=== PATIENT | male | born 1955 | race African-American/Black ===

== ENCOUNTER 2018-10-19 18:30 | Emergency (ER) | payer OTHER ==
--- NOTE | 2018-10-19 19:42 | ER Document Report ---
ED Medical Screen (RME) - General Chief Complaint: Passed Out Prior to Arrival Stated Complaint: POSSIBLE SEIZURE, PASSED OUT Time Seen by Provider: 10/19/18 19:39 Notes: Patient is a 62-year-old male presents to the emergency department with possible new onset seizures. Family states patient was sitting in a chair. States he slumped over to his left side and then his upper bilateral arms and lower bilateral legs started shaking. Family is showing me the activity and it does appear to be a tonic-clonic type seizure. States patient was also foaming at the mouth. States they were able to lay the patient flat on the ground. States after patient "woke up" patient had no idea where he was or what had happened. Patient states he felt lightheaded and dizzy but then does not remember any thing after that. Patient has a history of diabetes, takes glipizide Triage PSG within normal limits. GENERAL: Alert, interacts well. No acute distress. EXTREMITIES: Moves all 4 extremities spontaneously. No edema, normal radial and dorsalis pedis pulses bilaterally. No cyanosis. 5 out of 5 strength all 4 extremities I have greeted and performed a rapid initial assessment of this patient. A comprehensive ED assessment and evaluation of the patient, analysis of test results and completion of the medical decision making process will be conducted by additional ED providers. This medical record was dictated with voice recognizing software. There may be grammatical, syntax errors that are unintended. TRAVEL OUTSIDE OF THE [place] IN LAST 30 DAYS: No - Related Data Allergies/Adverse Reactions: No Known Allergies Allergy (Verified 10/19/18 18:31) Past Medical History - Social History Chew tobacco use (# tins/day): No Frequency of alcohol use: None Drug Abuse: None Endocrine Medical History: Reports: Hx Diabetes Mellitus Type 2 Renal/ Medical History: Denies: Hx Peritoneal Dialysis Past Surgical History: Reports: Hx Cholecystectomy - Immunizations Hx Diphtheria, Pertussis, Tetanus Vaccination: Yes Physical Exam - Vital signs Vitals: Temp Pulse Resp BP Pulse Ox 98.2 F 77 14 101/71 94 10/19/18 18:43 10/19/18 18:43 10/19/18 18:43 10/19/18 18:43 10/19/18 18:43 Course - Vital Signs Vital signs: Temp Pulse Resp BP Pulse Ox 98.2 F 77 14 101/71 94 10/19/18 18:43 10/19/18 18:43 10/19/18 18:43 10/19/18 18:43 10/19/18 18:43
[2018-10-19 20:19] LABS: ABSOLUTE BASOPHILS # (AUTO) 0.1 10^3/uL (0.0-0.2); ABSOLUTE LYMPHOCYTES (AUTO) 1.9 10^3/uL (0.5-4.7); ABSOLUTE MONOCYTES (AUTO) 0.7 10^3/uL (0.1-1.4); ABSOLUTE NEUT (AUTO) 11.4 10^3/uL (1.7-8.2); BASOPHILS % (AUTO) 0.4 % (0-2); EOSINOPHILS % (AUTO) 0.2 % (0-6); HEMATOCRIT 44.1 % (37.9-51.0); HEMOGLOBIN 14.5 g/dL (13.5-17.0); LYMPHOCYTES % (AUTO) 13.5 % (13-45); MEAN CORPUSCULAR HEMOGLOBIN 28.3 pg (27.0-33.4); MEAN CORPUSCULAR VOLUME 86 fl (80-97); MONOCYTES % (AUTO) 4.7 % (3-13); PLATELET COUNT 232 10^3/uL (150-450); RED BLOOD COUNT 5.14 10^6/uL (4.35-5.55); RED CELL DISTRIBUTION WIDTH 14.5 % (11.5-14.0); SEGMENTED NEUTROPHILS % (AUTO) 81.2 % (42-78); TOTAL CELLS COUNTED % (AUTO) 100 %; WHITE BLOOD COUNT 14.1 10^3/uL (4.0-10.5)
[2018-10-19 20:25] LABS: APPEARANCE,URINE SLIGHTLY-CLOUDY; BILIRUBIN,URINE NEGATIVE (NEGATIVE); COLOR,URINE YELLOW; GLUCOSE, URINE 50 mg/dL (NEGATIVE); KETONES,URINE TRACE mg/dL (NEGATIVE); LEUKOCYTE ESTERASE,URINE NEGATIVE (NEGATIVE); NITRITE,URINE NEGATIVE (NEGATIVE); PROTEIN,URINE 30 mg/dL (NEGATIVE); URINE SPECIFIC GRAVITY 1.028; UROBILINOGEN,URINE NEGATIVE mg/dL (<2.0)
[2018-10-19 20:40] LABS: ALANINE AMINOTRANSFERASE 29 U/L (21-72); ALBUMIN 4.7 g/dL (3.5-5.0); ALKALINE PHOSPHATASE 54 U/L (38-126); ANION GAP 11 (5-19); ASPARTATE AMINO TRANSFERASE 35 U/L (17-59); BILIRUBIN,DIRECT 0.3 mg/dL (0.0-0.4); BLOOD UREA NITROGEN 16 mg/dL (7-20); CALCIUM 10.1 mg/dL (8.4-10.2); CARBON DIOXIDE 29 mmol/L (22-30); CHLORIDE 101 mmol/L (98-107); GLUCOSE 198 mg/dL (75-110); POTASSIUM 4.4 mmol/L (3.6-5.0); SODIUM 141.4 mmol/L (137-145); TOTAL PROTEIN 7.5 g/dL (6.3-8.2)
[2018-10-19 20:41] LABS: ALCOHOL < 10 mg/dL (NONE DETECTED)
[2018-10-19 20:42] LABS: URINE AMPHETAMINES SCREEN NEGATIVE; URINE BARBITURATES SCREEN NEGATIVE; URINE BENZODIAZEPINES SCREEN NEGATIVE; URINE COCAINE SCREEN NEGATIVE; URINE MARIJUANA (THC) SCREEN NEGATIVE; URINE METHADONE SCREEN NEGATIVE; URINE PHENCYCLIDINE SCREEN NEGATIVE
--- NOTE | 2018-10-19 20:47 | ER Document Report ---
ED Seizure - General Chief Complaint: Passed Out Prior to Arrival Stated Complaint: POSSIBLE SEIZURE, PASSED OUT Time Seen by Provider: 10/19/18 19:39 Primary Care Provider: HAYDEN PENNY MD [Primary Care Provider] - 10/21/18 Notes: Patient is a 62-year-old male that comes to the emergency department for chief c omplaint of possible new onset seizure. Family reported patient was sitting in a chair, slumped over to his left side, then both upper and lower extremities on both sides started shaking and seizure-like activity. Patient is unable to tell me how long this lasted. He states he does not remember the episode. Patient states he feels tired but he denies headache, pain, nausea, dizziness, or any o ther symptoms at this time. Past medical history of type 2 diabetes, BPH, both medicated. Only other reported medical history is cholecystectomy. Patient denies alcohol or hitting his head today. Denies any new medications. Denies sick symptoms today. - Related Data Allergies/Adverse Reactions: No Known Allergies Allergy (Verified 10/19/18 18:31) Past Medical History - General Information source: Patient, Relative - Social History Smoking Status: Current Every Day Smoker Chew tobacco use (# tins/day): No Frequency of alcohol use: None Drug Abuse: None Lives with: Family Family History: None Patient has suicidal ideation: No Patient has homicidal ideation: No Endocrine Medical History: Reports: Hx Diabetes Mellitus Type 2 Renal/ Medical History: Denies: Hx Peritoneal Dialysis Past Surgical History: Reports: Hx Cholecystectomy - Immunizations Hx Diphtheria, Pertussis, Tetanus Vaccination: Yes Review of Systems - Review of Systems Constitutional: No symptoms reported EENT: No symptoms reported Cardiovascular: No symptoms reported Respiratory: No symptoms reported Gastrointestinal: No symptoms reported Genitourinary: No symptoms reported Male Genitourinary: No symptoms reported Musculoskeletal: No symptoms reported Skin: No symptoms reported Hematologic/Lymphatic: No symptoms reported Neurological/Psychological: See HPI Physical Exam - Vital signs Vitals: Temp Pulse Resp BP Pulse Ox 98.2 F 77 14 101/71 94 10/19/18 18:43 10/19/18 18:43 10/19/18 18:43 10/19/18 18:43 10/19/18 18:43 - Notes Notes: GENERAL: Alert, interacts well. No acute distress. HEAD: Normocephalic, atraumatic. EYES: Pupils equal, round, and reactive to light. Extraocular movements intact. ENT: Oral mucosa moist, tongue midline. Oropharynx unremarkable. Airway patent. Nares patent, no nasal septal hematoma, TM's intact. NECK: Full range of motion. Supple. Trachea midline. LUNGS: Clear to auscultation bilaterally, no wheezes, rales, or rhonchi. No respiratory distress. HEART: Regular rate and rhythm. No murmur ABDOMEN: Soft, non-tender. Non-distended. Bowel sounds present in all 4 quadrants. GENITOURINARY: Deferred EXTREMITIES: Moves all 4 extremities spontaneously. No edema, normal radial and dorsalis pedis pulses bilaterally. No cyanosis. BACK: no cervical, thoracic, lumbar midline tenderness. No saddle anesthesia, normal distal neurovascular exam. Moves all extremities in full range of motion. NEUROLOGICAL: Alert and oriented x3. Normal speech. Cranial nerves II through XII grossly intact. PSYCH: Normal affect, normal mood. SKIN: Warm, dry, normal turgor. No rashes or lesions noted. Course - Re-evaluation Re-evalutation: On my evaluation patient states he is tired but he denies headache or any current symptoms. He is oriented, alert, his neurological exam is normal. Family at bedside, states the seizure lasted approximately 3 minutes, he did not fall out of the chair or have an injury with a seizure, he was confused when he came to. They also state that he has not had any abnormal symptoms today, he had no fall or injury, no fever, no vomiting, no alcohol, or any other noticeable change. CT of the head unremarkable. CBC unremarkable shows mild leukocytosis with elevation of neutrophils but no bandemia. No fever. No complaints. No nuchal rigidity, confusion, or headache on my evaluation. Chemistry shows mild hyperglycemia with no acidosis. Urinalysis shows elevated specific gravity and ketones suggesting dehydration. Patient was given IV fluids. Magnesium unremarkable, alcohol negative. On reevaluation patient remains well-appearing. Patient did not decompensate during his re-evaluations in time here. Based on his evaluation I do not suspect intracranial hemorrhage, meningitis, or emergent etiology causing the seizure episode today. I discussed at length with family and patient the se izure, precautions, and neurology follow-up, he will be discharged with follow- up instructions and return precautions. I discussed with Dr. Russo. Patient and family state satisfaction and agreement with plan. - Vital Signs Vital signs: Temp Pulse Resp BP Pulse Ox 97.5 F 77 18 113/89 H 100 10/19/18 23:05 10/19/18 18:43 10/19/18 23:05 10/19/18 23:05 10/19/18 23:05 - Laboratory Result Diagrams: 10/19/18 20:00 10/19/18 20:00 Laboratory results interpreted by me: 10/19/18 10/19/18 10/19/18 20:00 20:00 20:00 WBC 14.1 H RDW 14.5 H Seg Neutrophils % 81.2 H Absolute Neutrophils 11.4 H Glucose 198 H Urine Protein 30 H Urine Glucose (UA) 50 H Urine Ketones TRACE H Discharge - Discharge Clinical Impression: Seizure Condition: Stable Disposition: HOME, SELF-CARE Additional Instructions: Your workup does not show any concerning findings. It is possible you never have a seizure again, however precautions are needed and you needed to be evaluated and cleared by Neurology (see referral below, call for followup). Do not drive, take a bath in a tub, or swim alone (you could have a seizure and wreck or drown) until cleared by Neurology. Return for any concerning symptoms (fever, confusion, vomiting, another seizure, etc). [facility] [address] [facility] [address] Referrals: HAYDEN PENNY MD [Primary Care Provider] - 10/21/18
--- NOTE | 2018-10-19 21:23 | RADIOLOGY REPORT (SQ) ---
CT HEAD WITHOUT IV CONTRAST HISTORY: new onset sz. COMPARISON: None. TECHNIQUE: CT scan of the brain without IV contrast. This exam was performed according to our departmental dose-optimization program, which includes automated exposure control, adjustment of the mA and/or kV according to patient size and/or use of iterative reconstruction technique. FINDINGS: The ventricles, cisterns, and sulci are age-appropriate. No evidence of acute infarction, intracranial hemorrhage, extra-axial fluid collection, or midline shift. No air-fluid levels are seen in the paranasal sinuses to suggest acute sinusitis. No depressed skull fracture. IMPRESSION: No acute intracranial findings.
[2018-10-19] MEDS ORDERED: NORMAL SALINE 1000 ML 1,000 ML IV ONE (21:34)
[2018-10-19 23:26] VITALS: BP 113/89
== END 2018-10-19 23:10 | disposition home or self-care (01) ==
LOC: ER 18:30
DX: R56.9 Unspecified convulsions (principal); R55 Syncope and collapse; R53.83 Other fatigue; F17.200 Nicotine dependence, unspecified, uncomplicated; E11.9 Type 2 diabetes mellitus without complications; Z90.49 Acquired absence of other specified parts of digestive tract
CPT/HCPCS: 99285; 96360; 36415; 82962; 80307 ×2; 83735; 85025; 80053; 81001; 70450; J7030

== ENCOUNTER → 2018-10-23 | Outpatient (CLI) | payer OTHER ==
--- NOTE | 2018-10-23 18:18 | RADIOLOGY REPORT (SQ) ---
EXAM DESCRIPTION: MRI HEAD COMBO COMPLETED DATE/TIME: 10/23/2018 5:36 pm REASON FOR STUDY: G40.501 EPILEPTIC SEIZ REL TO EXTRN CAUSES, NOT NTRCT, W STAT EPI G40.501 EPILEPT IC SEIZ REL TO EXTRN CAUSES, NOT NTRCT, W STA COMPARISON: CT brain 10/19/2018 TECHNIQUE: Multiplanar imaging includes noncontrasted T1, T2, FLAIR, diffusion with ADC map and post gadolinium contrast T1 sequences. Images stored on PACS. CONTRAST TYPE AND DOSE: 15 mL Dotarem. RENAL FUNCTION: Not indicated. ACR Type II contrast agent associated with few, if any, unconfounded cases of NSF LIMITATIONS: None. FINDINGS: ANATOMY: No anomalies. Normal vascular flow voids. Pituitary fossa normal. CSF SPACES: Normal in size and contour. No hemorrhage. CEREBRUM: Sulci and gyri normal in size and contour. Normal white matter signal on FLAIR imaging. No evidence of hemorrhage, mass, or extraaxial fluid collection. No abnormal enhancement post contrast. POSTERIOR FOSSA: No signal alteration. No hemorrhage. No edema, masses, or mass effect. Internal diane tory canals, cerebellopontine angles, mastoids normal. No enhancing lesions. No abnormal enhancement post contrast. DIFFUSION IMAGING: Negative for acute or subacute infarction. ORBITS: No masses. Globes normal. PARANASAL SINUSES: No fluid levels. Mucosa normal. OTHER: No other significant finding. IMPRESSION: NORMAL MRI OF THE BRAIN WITHOUT AND WITH INTRAVENOUS GADOLINIUM CONTRAST. EVIDENCE OF ACUTE STROKE: NO. TECHNICAL DOCUMENTATION: JOB ID: [id number] [employer]- All Rights Reserved Reading location - IP/workstation name: [email or web address]
== END ==
LOC: RAD 16:28
PROVIDERS: ATTEND Internal Medicine
DX: G40.501 Epileptic seizures related to external causes, not intractable, with status epilepticus (principal)
CPT/HCPCS: 82565; 70553; A9576

== ENCOUNTER 2018-11-15 08:12 | Emergency (ER) | payer OTHER ==
--- NOTE | 2018-11-15 08:40 | RADIOLOGY REPORT (SQ) ---
EXAM DESCRIPTION: CT HEAD WITHOUT COMPLETED DATE/TIME: 11/15/2018 8:30 am REASON FOR STUDY: Head Injury COMPARISON: 10/19/2018 TECHNIQUE: Axial images acquired through the brain without intravenous contrast. Images reviewed wi th bone, brain and subdural windows. Additional sagittal and coronal reconstructions were generated. Images stored on PACS. All CT scanners at this facility use dose modulation, iterative reconstruction, and/or weight based d osing when appropriate to reduce radiation dose to as low as reasonably achievable (ALARA). [facility]: Dose Right [facility]: CareDose [facility]: Dose Right [facility]: Teradose 4D [facility]: [employer] RADIATION DOSE: CT Rad equipment meets quality standard of care and radiation dose reduction techniq ues were employed. CTDIvol: 53.2 mGy. DLP: 991 mGy-cm. mGy. LIMITATIONS: None. FINDINGS: VENTRICLES: Normal size and contour. CEREBRUM: No masses. No hemorrhage. No midline shift. No evidence for acute infarction. Normal gra y/white matter differentiation. No areas of low density in the white matter. CEREBELLUM: No masses. No hemorrhage. No alteration of density. No evidence for acute infarction. EXTRAAXIAL SPACES: No fluid collections. No masses. ORBITS AND GLOBE: No intra- or extraconal masses. Normal contour of globe without masses. CALVARIUM: No fracture. PARANASAL SINUSES: No fluid or mucosal thickening. SOFT TISSUES: No mass or hematoma. OTHER: No other significant finding. IMPRESSION: No acute intracranial pathology. EVIDENCE OF ACUTE STROKE: NO. COMMENT: Quality ID # [id number]: Final reports with documentation of one or more dose reduction techniques (e.g., Automated exposure control, adjustment of the mA and/or kV according to patient size, use of iterative reconstruction technique) TECHNICAL DOCUMENTATION: JOB ID: [id number] [employer]- All Rights Reserved Reading location - IP/workstation name: [email or web address]
--- NOTE | 2018-11-15 09:06 | RADIOLOGY REPORT (SQ) ---
EXAM DESCRIPTION: RIBS BILATERAL W/PA CXR COMPLETED DATE/TIME: 11/15/2018 8:42 am REASON FOR STUDY: Fall COMPARISON: None. TECHNIQUE: Frontal view of the chest and additional views of the right and left ribs acquired. NUMBER OF VIEWS: 9 views LIMITATIONS: None. FINDINGS: FRONTAL CXR: No pneumothorax. No pleural effusion. No atelectasis or infiltrates. RIBS: There are minimally displaced fractures of the right anterior 5th, 6th, and 7th ribs. There ar e minimally displaced fractures of the left anterior 6th and 7th ribs. OTHER: No other significant finding. IMPRESSION: There are minimally displaced fractures of the right anterior 5th, 6th, and 7th ribs. T here are minimally displaced fractures of the left anterior 6th and 7th ribs. No pneumothorax or ple ural effusion. COMMENT: SITE OF TRAUMA/COMPLAINT MARKED/STAMP COMPLETED: YES. TECHNICAL DOCUMENTATION: JOB ID: [id number] [employer]- All Rights Reserved Reading location - IP/workstation name: [email or web address]
[2018-11-15] MEDS ORDERED: OXYCODONE-ACETAMINOPHEN 5-325 MG TABLET PO ONE (10:18)
[2018-11-15] MEDS ORDERED: ONDANSETRON 4 MG TAB.RAPDIS PO ONE (10:18)
[2018-11-15 10:19] LABS: APPEARANCE,URINE SLIGHTLY-CLOUDY; BILIRUBIN,URINE NEGATIVE (NEGATIVE); COLOR,URINE YELLOW; GLUCOSE, URINE >=500 mg/dL (NEGATIVE); KETONES,URINE NEGATIVE (NEGATIVE); LEUKOCYTE ESTERASE,URINE NEGATIVE (NEGATIVE); NITRITE,URINE NEGATIVE (NEGATIVE); PROTEIN,URINE NEGATIVE (NEGATIVE); UROBILINOGEN,URINE NEGATIVE mg/dL (<2.0)
[2018-11-15 10:29] LABS: URINE AMPHETAMINES SCREEN NEGATIVE; URINE BARBITURATES SCREEN NEGATIVE; URINE BENZODIAZEPINES SCREEN NEGATIVE; URINE COCAINE SCREEN NEGATIVE; URINE MARIJUANA (THC) SCREEN NEGATIVE; URINE METHADONE SCREEN NEGATIVE; URINE PHENCYCLIDINE SCREEN NEGATIVE
[2018-11-15 10:33] LABS: ABSOLUTE LYMPHOCYTES (AUTO) 1.6 10^3/uL (0.5-4.7); ABSOLUTE MONOCYTES (AUTO) 0.7 10^3/uL (0.1-1.4); ABSOLUTE NEUT (AUTO) 8.3 10^3/uL (1.7-8.2); BASOPHILS % (AUTO) 0.4 % (0-2); EOSINOPHILS % (AUTO) 0.3 % (0-6); HEMOGLOBIN 15.4 g/dL (13.5-17.0); LYMPHOCYTES % (AUTO) 14.7 % (13-45); MEAN CORPUSCULAR HEMOGLOBIN 28.8 pg (27.0-33.4); MEAN CORPUSCULAR HGB CONC 33.6 g/dL (32.0-36.0); MEAN CORPUSCULAR VOLUME 86 fl (80-97); MONOCYTES % (AUTO) 6.2 % (3-13); PLATELET COUNT 171 10^3/uL (150-450); RED BLOOD COUNT 5.36 10^6/uL (4.35-5.55); RED CELL DISTRIBUTION WIDTH 14.4 % (11.5-14.0); SEGMENTED NEUTROPHILS % (AUTO) 78.4 % (42-78); TOTAL CELLS COUNTED % (AUTO) 100 %; WHITE BLOOD COUNT 10.7 10^3/uL (4.0-10.5)
[2018-11-15 10:58] LABS: ALANINE AMINOTRANSFERASE 29 U/L (21-72); ALBUMIN 4.5 g/dL (3.5-5.0); ALKALINE PHOSPHATASE 68 U/L (38-126); ANION GAP 11 (5-19); ASPARTATE AMINO TRANSFERASE 43 U/L (17-59); BILIRUBIN,DIRECT 0.4 mg/dL (0.0-0.4); BILIRUBIN,TOTAL 1.1 mg/dL (0.2-1.3); BLOOD UREA NITROGEN 16 mg/dL (7-20); CALCIUM 9.5 mg/dL (8.4-10.2); CARBON DIOXIDE 21 mmol/L (22-30); CHLORIDE 107 mmol/L (98-107); GLUCOSE 179 mg/dL (75-110); POTASSIUM 4.3 mmol/L (3.6-5.0); SODIUM 138.8 mmol/L (137-145); TOTAL PROTEIN 7.5 g/dL (6.3-8.2)
--- NOTE | 2018-11-15 11:48 | ER Document Report ---
ED General - General Chief Complaint: Head Injury Stated Complaint: FALL/ABDOMINAL,RIB PAIN Time Seen by Provider: 11/15/18 08:50 Primary Care Provider: HAYDEN PENNY MD [Primary Care Provider] - Follow up as needed TRAVEL OUTSIDE OF THE [place] IN LAST 30 DAYS: No - HPI Notes: Patient is a 62-year-old gentleman who presents to the emergency department for evaluation. He fell down to wooden steps outside. His did not witness this, but did hear it. He states he struck his chest wall. He denies any shortness of breath. Afterwards his got him up, sat him in a chair. She states he was putting his head backwards and his eyes seem to roll back. He does have a history of seizures for which she takes Keppra. She states she was unsure of what she witnessed was a seizure or not. She states that the patient was interactive with her throughout the entire episode. He has been taking his Keppra as prescribed. The patient himself denies hitting his head. He denies any neck or back pain. - Related Data Allergies/Adverse Reactions: No Known Allergies Allergy (Verified 11/15/18 08:13) Past Medical History - General Information source: Patient, Relative - Social History Smoking Status: Former Smoker Frequency of alcohol use: None Drug Abuse: None Family History: None Patient has suicidal ideation: No Patient has homicidal ideation: No Neurological Medical History: Reports: Hx Seizures Endocrine Medical History: Reports: Hx Diabetes Mellitus Type 2 Renal/ Medical History: Denies: Hx Peritoneal Dialysis Past Surgical History: Reports: Hx Cholecystectomy - Immunizations Hx Diphtheria, Pertussis, Tetanus Vaccination: Yes Review of Systems - Review of Systems Constitutional: No symptoms reported EENT: No symptoms reported Cardiovascular: See HPI Respiratory: No symptoms reported Gastrointestinal: No symptoms reported Genitourinary: No symptoms reported Musculoskeletal: No symptoms reported Skin: No symptoms reported Neurological/Psychological: See HPI Physical Exam - Vital signs Vitals: Temp Pulse Resp BP Pulse Ox 98.9 F 76 16 118/76 95 11/15/18 08:20 11/15/18 08:20 11/15/18 08:20 11/15/18 08:20 11/15/18 08:20 - Notes Notes: Vital signs reviewed, please refer to chart. Head is normocephalic, atraumatic. Pupils equal round, reactive to light. Neck is supple without meningismus. Examination of the spine yields no midline tenderness or step-off. No paraspinal musculature tenderness is appreciated. Heart is regular rate and rhythm. Lungs are clear to auscultation bilaterally. Gross examination of the chest wall reveals no obvious deformity or abnormality. Chest wall excursion is equal bilaterally. Patient does have anterior chest wall tenderness to palpation from approximately T5 down through T8 bilaterally. No subcutaneous emphysema. Abdomen is soft, nontender, normoactive bowel sounds throughout. Extremities without cyanosis, clubbing. Posterior calves are nontender. Peripheral pulses are equal. Skin is warm and dry. Patient is awake, alert, oriented x3. Cranial nerves II through XII are grossly intact without focal neurological deficits. Strength is plus 5 out of 5 bilateral upper and lower extremities. Sensation is intact. Intact [id number], rapid altering movements, [id number]. Course - Re-evaluation Re-evalutation: 11/15/18 11:43 Patient presents emergency department for evaluation. He was seen after a fall, injury to the chest wall. It does not sound to me as if the patient did suffer from a seizure. He is already on Keppra, and level was ordered. This is a send out, and is of course pending at this time. CT scan of the head was ordered reflexively given this patient who had fallen and had a reported seizure. This is found to be largely unremarkable. Chest x-ray revealed rib fractures bilaterally. No flail chest. Serial exams were performed and the patient had no respiratory distress. In fact he was no less than 99% on room air throughout the course of his stay. He really only complained of minimal pain. He was medicated here with Percocet. He was given incentive spirometry and teaching in regards to this. I will send him home with a [place] 2 inhibitor, Percocet, incenti ve spirometer. He is to follow-up with Dr. Penny on Sunday. He is to return to the ED with worsening or new concerning symptoms of any sort. - Vital Signs Vital signs: Temp Pulse Resp BP Pulse Ox 98.9 F 76 21 H 128/84 H 99 11/15/18 08:20 11/15/18 08:20 11/15/18 10:01 11/15/18 10:11/15/18 10:01 - Laboratory Result Diagrams: 11/15/18 10:17 11/15/18 10:17 Laboratory results interpreted by me: 11/15/18 11/15/18 11/15/18 09:55 10:17 10:17 WBC 10.7 H RDW 14.4 H Seg Neutrophils % 78.4 H Absolute Neutrophils 8.3 H Carbon Dioxide 21 L Glucose 179 H Urine Glucose (UA) >=500 H - Diagnostic Test Radiology reviewed: Reports reviewed Radiology results interpreted by me: 11/15/18 11:[address] 11/15/18 00:00 IMPRESSION: No acute intracranial pathology. EVIDENCE OF ACUTE STROKE: NO. Ribs X-Ray 11/15/18 00:00 IMPRESSION: There are minimally displaced fractures of the right anterior 5th, 6th, and 7th ribs. There are minimally displaced fractures of the left anterior 6th and 7th ribs. No pneumothorax or pleural effusion. Discharge - Discharge Clinical Impression: Multiple fractures of ribs of both sides Qualifiers: Encounter type: initial encounter Fracture type: closed Qualified Code(s): S22.43XA - Multiple fractures of ribs, bilateral, initial encounter for closed fracture Condition: Stable Disposition: HOME, SELF-CARE Instructions: Rib Injuries and Fractures ([facility]) Additional Instructions: It is very important that you take deep breaths, control your pain well, and use the incentive spirometer as you were instructed. Follow-up with Dr. Penny on Sunday. If you develop fever, coughing, shortness of breath, increased pain, or any other new concerning symptoms, return immediately to the emergency department for reevaluation. Referrals: HAYDEN PENNY MD [Primary Care Provider] - Follow up as needed
[2018-11-15 12:05] VITALS: BP 128/87
== END 2018-11-15 12:23 | disposition home or self-care (01) ==
LOC: ER 08:12
DX: S22.43XA Multiple fractures of ribs, bilateral, initial encounter for closed fracture (principal); W10.8XXA Fall (on) (from) other stairs and steps, initial encounter; Y92.009 Unspecified place in unspecified non-institutional (private) residence as the place of occurrence of the external cause; R56.9 Unspecified convulsions; Z79.899 Other long term (current) drug therapy; Z87.891 Personal history of nicotine dependence; E11.9 Type 2 diabetes mellitus without complications
CPT/HCPCS: 99284; 36415; 80177; 85025; 80053; 81001; 80307; 71111; 70450; S0119

== ENCOUNTER → 2018-12-26 | Outpatient (CLI) | payer OTHER ==
--- NOTE | 2018-12-26 19:18 | RADIOLOGY REPORT (SQ) ---
EXAM DESCRIPTION: RIBS BILATERAL W/PA CXR COMPLETED DATE/TIME: 12/26/2018 4:55 pm REASON FOR STUDY: R07.9 CHEST PAIN, UNSPECIFIED R07.9 CHEST PAIN, UNSPECIFIED COMPARISON: 11/15/2018 TECHNIQUE: Frontal view of the chest and additional views of the right and left ribs acquired. NUMBER OF VIEWS: Four views LIMITATIONS: None. FINDINGS: FRONTAL CXR: No pneumothorax. No pleural effusion. No atelectasis or infiltrates. RIBS: There is a fracture of the right 7th rib laterally. OTHER: No other significant finding. IMPRESSION: Right 7th rib fracture this is only seen on the single image. COMMENT: SITE OF TRAUMA/COMPLAINT MARKED/STAMP COMPLETED: No TECHNICAL DOCUMENTATION: JOB ID: [id number] [employer]- All Rights Reserved Reading location - IP/workstation name: [email or web address]
== END ==
LOC: RAD 16:36
PROVIDERS: ATTEND Internal Medicine
DX: R07.9 Chest pain, unspecified (principal)
CPT/HCPCS: 71111